=== PATIENT | male | born 1980 | race Caucasian/White ===

== ENCOUNTER 2023-06-07 09:51 | Emergency (ER) | payer OTHER ==
[2023-06-07 10:07] VITALS: TEMP 98
[2023-06-07 10:43] VITALS: RESP 16
--- NOTE | 2023-06-07 10:45 | ED ---
General Adult HPI - General Chief complaint: Recheck/Abnormal Lab/Rx Stated complaint: abdominal pain Source: patient Mode of arrival: ambulatory - History of Present Illness Initial comments: 43-year-old male presents to ED with a chief complaint of right groin pain. Patient states onset of right groin pain 2 weeks ago. Patient denies any known injury or recent strenuous physical activity. Patient states pain is a constant dull ache which is 5 out of 10 in severity. States pain is worse with cough or movement and becomes a sharp 8 out of 10 pain. Patient also notes a history of back pain. States braeden started to experience pain this morning. States that back pain is unchanged from history of back pain. Denies saddle anesthesia or incontinence. Denies urinary symptoms. Denies chest pain or shortness of breath. No other complaints. - Related Data Home Medications Medication Instructions Recorded Confirmed Albuterol Inhaler [Ventolin Hfa 1 puff INHALATION TID 09/22/14 09/22/14 Inhaler] traMADol HCl [Ultram] 50 mg PO Q6H PRN 09/22/14 09/22/14 Previous Rx's Medication Instructions Recorded Atorvastatin [Lipitor] 40 mg PO DAILY #30 tab 09/24/14 Lisinopril [Prinivil] 5 mg PO DAILY #30 tab 09/24/14 Melatonin 5 mg PO HS PRN #30 tablet 09/24/14 Nitroglycerin Sl Tabs [Nitrostat] 0.4 mg SUBLINGUAL Q5M PRN #1 tab 09/24/14 Allergies Allergy/AdvReac Type Severity Reaction Status Date / Time No Known Allergies Allergy Verified 06/07/23 10:06 Review of Systems ROS Statement: Those systems with pertinent positive or pertinent negative responses have been documented in the HPI. ROS Other: All systems not noted in ROS Statement are negative. Past Medical History Past Medical History: Hypertension Additional Past Medical History / Comment(s): 09/22/14 Pt presented to [facility] ER by car with family with c/o chest pain. Pt states he quit smoking 2 yrs ago and since then he has occasional chest pain. Pt states he notice increased amount and occurrence of chest pain over the last few days and the past 3 nites he has awoken with chest pain, +diaphoresis,+SOB. Pain is a chest tightness-sharp at times . Pt states he feels like someone is standing on his chest. Pt is concerned because he has a family hx of "young WA's. " Other HX: HTN-recently (2 days ago) placed on B/P medication, anxiety. History of Any Multi-Drug Resistant Organisms: None Reported Past Surgical History: Orthopedic Surgery Additional Past Surgical History / Comment(s): Upper RIGHT ARM surgical repair of fracture-pins and plates. Past Anesthesia/Blood Transfusion Reactions: No Reported Reaction Past Psychological History: No Psychological Hx Reported Smoking Status: Vaper Past Alcohol Use History: Occasional Past Drug Use History: None Reported, Marijuana - Past Family History Father Family Medical History: Myocardial Infarction (WA) Additional Family Medical History / Comment(s): Father is living and is 66yrs old. He has had 2 WA's. Mother Family Medical History: Hypertension Sister(s) Additional Family Medical History / Comment(s): sister had a "blood clot" General Exam Limitations: no limitations General appearance: alert, in no apparent distress Neck exam: Present: normal inspection Respiratory exam: Present: normal lung sounds bilaterally Cardiovascular Exam: Present: regular rate, normal rhythm GI/Abdominal exam: Present: soft exam: Present: other (Upon Valsalva/cough unable to palpate for a small oral or inguinal hernia. No overlying skin changes at site of pain. No tenderness to palpation at site of pain.) Extremities exam: Present: other (Strength and sensation bilateral lower extremities intact. DP/PT pulses intact.) Back exam: Present: normal inspection Neurological exam: Present: alert, oriented X3, normal gait Skin exam: Present: warm, dry Course Vital Signs 06/07/23 06/07/23 10:03 10:06 Temperature 98.0 F Pulse Rate 62 68 Respiratory 18 16 Rate Blood Pressure 159/96 150/86 O2 Sat by Pulse 97 98 Oximetry Medical Decision Making - Medical Decision Making Was pt. sent in by a medical professional or institution (, PA, PHARMACIST TECHNICIAN, urgent care, hospital, or jail...) When possible be specific @ -No Did you speak to anyone other than the patient for history (EMS, parent, family, police, friend...)? What history was obtained from this source @ -No Did you review nursing and triage notes (agree or disagree)? Why? @ -I reviewed and agree with nursing and triage notes Were old charts reviewed (outside hosp., previous admission, EMS record, old EKG, old radiological studies, urgent care reports/EKG's, jail records)? Report findings @ -No old charts were reviewed Differential Diagnosis (chest pain, altered mental status, abdominal pain women, abdominal pain men, vaginal bleeding, weakness, fever, dyspnea, syncope, headache, dizziness, GI bleed, back pain, seizure, CVA, palpatations, mental health, musculoskeletal)? @ -Differential Musculoskeletal Muscular strain, contusion, ligament sprain, fracture, arthritis, septic arthritis, bursitis, cellulitis, muscle spasm, nerve compression, DVT, arterial occlusion, herpes zoster, electrolyte abnormality, tumor.... This is not meant to be in all inclusive list Differential Back Pain: Strain, zoster, cauda equina syndrome, epidural abscess, vertebral osteomyelitis, discitis, fracture, subluxation, disc herniation, DJD, spinal stenosis, dissection, AAA, pancreatitis, peptic ulcer disease, pyelonephritis, kidney stone, this is not meant to be an all-inclusive list. EKG interpreted by me (3pts min.). @ -None X-rays interpreted by me (1pt min.). @ -None done CT interpreted by me (1pt min.). @ -None done U/S interpreted by me (1pt. min.). @ -Ultrasound interpreted by me. Ultrasound shows no evidence of hernia or pseudoaneurysm. No evidence of other acute findings. What testing was considered but not performed or refused? (CT, X-rays, U/S, labs)? Why? @ -None What meds were considered but not given or refused? Why? @ -None Did you discuss the management of the patient with other professionals (professionals i.e. , PA, PHARMACIST TECHNICIAN, lab, RT, psych nurse, mental health social worker, oakes machine operator, teacher, space officer, keycase assembler)? Give summary @ -No Was smoking cessation discussed for >3mins.? @ -No Was critical care preformed (if so, how long)? @ -No Were there social determinants of health that impacted care today? How? (Homelessness, low income, unemployed, alcoholism, drug addiction, transportation, low edu. Level, literacy, decrease access to med. care, longterm, rehab)? @ -No Was there de-escalation of care discussed even if they declined (Discuss DNR or withdrawal of care, Hospice)? DNR status @ -No What co-morbidities impacted this encounter? (DM, HTN, Smoking, COPD, CAD, Cancer, CVA, ARF, Chemo, Hep., AIDS, mental health diagnosis, sleep apnea, morbid obesity)? @ -None Was patient admitted / discharged? Hospital course, mention meds given and route, prescriptions, significant lab abnormalities, going to OR and other per tinent info. @ -Discharged. Ultrasound showed no acute findings. At this time, patient is not having any other symptoms, including bladder, bowel, or abdominal symptoms. Symptoms likely musculoskeletal in nature. Patient discharged home in stable condition and advised to follow up with PCP. Discussed return precautions with patient verbalizes agreement. Undiagnosed new problem with uncertain prognosis? @ -No Drug Therapy requiring intensive monitoring for toxicity (Heparin, Nitro, Insulin, Cardizem)? @ -No Were any procedures done? @ -No Diagnosis/symptom? @ -Right groin pain Acute, or Chronic, or Acute on Chronic? @ -Acute Uncomplicated (without systemic symptoms) or Complicated (systemic symptoms)? @ -Uncomplicated Side effects of treatment? @ -No Exacerbation, Progression, or Severe Exacerbation? @ -No Poses a threat to life or bodily function? How? (Chest pain, [place], [place], pneumonia, PE, COPD, DKA, ARF, appy, cholecystitis, CVA, Diverticulitis, Homicidal, Suicidal, threat to staff... and all critical care pts) @ -No Disposition Clinical Impression: Groin pain Disposition: HOME SELF-CARE Condition: Good Instructions (If sedation given, give patient instructions): Groin Pain (ED) Additional Instructions: Please return to the Emergency Department if symptoms worsen or any other concerns. Is patient prescribed a controlled substance at d/c from ED?: No Referrals: None,Stated [Primary Care Provider] - 1-2 days Time of Disposition: 12:16
[2023-06-07] MEDS ORDERED: KETOROLAC 15 MG/ML 1 ML VIAL IM STA (11:11)
--- NOTE | 2023-06-07 11:42 | US ---
EXAMINATION TYPE: US lower ext pseudo artery RT, US groin RT DATE OF EXAM: 06/07/2023 COMPARISON: NONE CLINICAL INDICATION: Male, 43 years old with history of r/o r femoral pseudoaneurysm; right groin myron n EXAM PERFORMED: Grayscale and color Doppler duplex imaging performed of the groin, post cardiac deangelo ter to assess for pseudoaneurysm. Additional targeted scanning along the right inguinal region. SIDE PERFORMED: rt Color and Waveform Doppler performed to assess for the presence of pseudoaneurysm; Is there ultrasound evidence of a pseudoaneurysm: no Is there evidence of AV shunting: no Is there a fluid collection present: no Additional images were right renal region. No solid or cystic lesion. Valsalva was performed and no c hange in configuration of tissues is identified to suggest a hernia on the provided images. IMPRESSION: No sonographic evidence for pseudoaneurysm or any sizable hematoma within the right groin.
[2023-06-07 12:22] VITALS: BP 150/80; PULSE 65
== END 2023-06-07 12:22 | disposition home or self-care (01) ==
LOC: EC 09:51
DX: R10.30 Lower abdominal pain, unspecified (principal); I10 Essential (primary) hypertension; F17.290 Nicotine dependence, other tobacco product, uncomplicated; F12.90 Cannabis use, unspecified, uncomplicated
CPT/HCPCS: 93975; 93926; 76882; 99284; 96372; J1885